=== PATIENT | male | born 1935 | race Caucasian/White ===

== ENCOUNTER → 2016-09-16 | Day surgery (SDC) | payer OTHER ==
[2016-09-16 09:30] LABS: HCT 46.8 % (42.0-52.0); HGB 14.9 g/dl (13.2-18.0); MCH 28.6 pg (25.0-31.0); MCHC 31.8 g/dL (32.0-36.0); MCV 89.8 fL (78.0-100.0); MPV 11.5 fL (6.0-9.5); RBC 5.21 M/uL (4.70-6.00); RDW 15.3 % (11.5-14.0); WBC 13.8 K/uL (4.0-10.5)
[2016-09-16 09:50] LABS: ALBUMIN 4.3 g/dL (3.4-4.8); BILIRUBIN - TOTAL 0.7 mg/dL (0.1-1.0); CREATININE 1.3 mg/dL (0.7-1.2); GLOBULIN (CALCULATION) 2.6 g/dL (2.2-4.2); POTASSIUM 3.8 mmol/L (3.5-5.1); TOTAL PROTEIN 6.9 g/dL (6.4-8.3)
== END | disposition home or self-care (01) ==
LOC: FAS 09:02
PROVIDERS: Surgery
DX: K64.1 Second degree hemorrhoids (principal); K57.30 Diverticulosis of large intestine without perforation or abscess without bleeding; D51.0 Vitamin B12 deficiency anemia due to intrinsic factor deficiency; M19.90 Unspecified osteoarthritis, unspecified site; Z79.899 Other long term (current) drug therapy; Z98.890 Other specified postprocedural states; Z87.891 Personal history of nicotine dependence
CPT/HCPCS: 36415; 80053; J2704

== ENCOUNTER 2020-08-07 14:14 | Inpatient (IN) | payer MEDICARE, OTHER ==
[~2020-08-07] VITALS: Ht 167.6 cm; Wt 87.6 kg
[~2020-08-07 14:14] MED LIST: CYANOCOBAL1000 MCG/1 SC; FOLIC ACID1 MG PO; HCTZ25 MG PO; LASIX40 MG PO; PREDNISONE5 MG PO
[2020-08-07 16:10] LABS: BASOPHIL 0.3 % (0-2); EOSINOPHIL 0 % (0-7); HCT 27.3 % (42.0-52.0); LYMPHOCYTE 16.8 % (15-48); MCHC 24.2 g/dL (32.0-36.0); MCV 74.6 fL (78.0-100.0); MONOCYTE 10.9 % (0-12); NEUTROPHIL 71.5 % (41-80); NRBC 0.4; PLT 216 K/uL (150-400); RBC 3.66 M/uL (4.70-6.00); RDW 19.6 % (11.5-14.0); WBC 7.9 K/uL (4.0-10.5)
[2020-08-07 16:16] LABS: HGB 6.6 g/dl (13.2-18.0)
[2020-08-07 16:18] LABS: INR 1.85 (0.9-1.2); PROTHROMBIN TIME 20.3 SECONDS (11.4-13.6)
[2020-08-07 16:19] LABS: PTT 34.8 SECONDS (22.2-34.7)
[2020-08-07 16:26] LABS: D-DIMER 0.65 ug/mLFEU (0.00-0.41)
[2020-08-07 16:33] LABS: ALBUMIN 3.3 g/dL (3.4-5.0); BILIRUBIN - TOTAL 0.6 mg/dL (0.2-1.0); BUN/CREAT RATIO (CALC) 23.3 RATIO; C-REACTIVE PROTEIN 0.9 mg/dL (<=0.90); CREATININE 1.72 mg/dL (0.67-1.17); GLOBULIN (CALCULATION) 2.8 g/dL; POTASSIUM 5.2 mmol/L (3.5-5.1); TOTAL PROTEIN 6.1 g/dL (6.4-8.2)
[2020-08-07] MEDS ORDERED: PLAVIX75 MG PO (22:21)
[2020-08-07] MEDS ORDERED: ELIQUIS5 MG PO (22:22)
[2020-08-07] MEDS ORDERED: LOPRESSOR25 MG PO (22:23)
[2020-08-08 05:14] LABS: BASOPHIL 0.4 % (0-2); EOSINOPHIL 0.9 % (0-7); LYMPHOCYTE 25.6 % (15-48); MCH 21.4 pg (25.0-31.0); MCHC 27.7 g/dL (32.0-36.0); MCV 77.1 fL (78.0-100.0); MONOCYTE 10.8 % (0-12); NEUTROPHIL 61.8 % (41-80); PLT 208 K/uL (150-400); RBC 4.54 M/uL (4.70-6.00); RDW 20.6 % (11.5-14.0); WBC 11.8 K/uL (4.0-10.5)
[2020-08-08 05:27] LABS: INR 1.47 (0.9-1.2); PROTHROMBIN TIME 16.9 SECONDS (11.4-13.6)
[2020-08-08 05:31] LABS: HGB 9.7 g/dl (13.2-18.0)
[2020-08-08 07:06] LABS: EOSINOPHIL(M) 2 % (0-7); LYMPHOCYTE(M) 28 % (15-48); MONOCYTE(M) 8 % (0-12); NEUTROPHILS(M) 62 % (41-80); PLATELET ESTIMATE NORMAL; PLATELET MORPHOLOGY NORMAL; TOTAL CELL COUNT 100
[2020-08-08 07:07] LABS: ANISOCYTOSIS SLIGHT; MICROCYTOSIS SLIGHT; POLYCHROMASIA SLIGHT
[2020-08-08 07:48] LABS: CREATININE 1.91 mg/dL (0.67-1.17); POTASSIUM 4.5 mmol/L (3.5-5.1)
[2020-08-08 16:06] LABS: BASOPHIL 0.3 % (0-2); EOSINOPHIL 1.1 % (0-7); HCT 35.9 % (42.0-52.0); HGB 9.9 g/dl (13.2-18.0); LYMPHOCYTE 12.3 % (15-48); MCH 21.2 pg (25.0-31.0); MCHC 27.6 g/dL (32.0-36.0); MCV 76.7 fL (78.0-100.0); MONOCYTE 10.7 % (0-12); NEUTROPHIL 75.2 % (41-80); NRBC 0.3; PLT 209 K/uL (150-400); RBC 4.68 M/uL (4.70-6.00); RDW 20.9 % (11.5-14.0); WBC 11.2 K/uL (4.0-10.5)
[2020-08-08 16:22] LABS: BUN/CREAT RATIO (CALC) 20.5 RATIO; CREATININE 1.95 mg/dL (0.67-1.17); POTASSIUM 4.2 mmol/L (3.5-5.1)
[2020-08-08] MEDS ORDERED: FEOSOL325 MG PO (18:19)
[2020-08-09 06:29] LABS: BASOPHIL 0.4 % (0-2); EOSINOPHIL 1.8 % (0-7); HCT 32.4 % (42.0-52.0); LYMPHOCYTE 15.6 % (15-48); MCH 21.2 pg (25.0-31.0); MCHC 27.8 g/dL (32.0-36.0); MCV 76.2 fL (78.0-100.0); MONOCYTE 11.8 % (0-12); PLT 190 K/uL (150-400); RBC 4.25 M/uL (4.70-6.00); RDW 21.4 % (11.5-14.0); WBC 8.5 K/uL (4.0-10.5)
[2020-08-09 06:33] LABS: NRBC 0
[2020-08-09 06:51] LABS: BUN/CREAT RATIO (CALC) 20.5 RATIO; CREATININE 1.9 mg/dL (0.67-1.17); POTASSIUM 3.7 mmol/L (3.5-5.1)
[2020-08-09] MEDS ORDERED: BUMETANIDE2 MG PO (08:31)
== END 2020-08-09 14:30 | disposition home or self-care (01) | DRG 280 ==
LOC: FER 14:14 → FTCU 18:38 → FMS 18:38 → FTCU 19:51
PROVIDERS: Allergy & Immunology; Emergency Medicine; Nurse Practitioner Family; ADMIT Allergy & Immunology Allergy
PROC: 30233N1 Transfusion of Nonautologous Red Blood Cells into Peripheral Vein, Percutaneous Approach (ICD-10-PCS; principal; 2020-08-07)
DX: I13.0 Hypertensive heart and chronic kidney disease with heart failure and stage 1 through stage 4 chronic kidney disease, or unspecified chronic kidney disease (principal); I50.23 Acute on chronic systolic (congestive) heart failure; I21.A1 Myocardial infarction type 2; K90.9 Intestinal malabsorption, unspecified; D50.9 Iron deficiency anemia, unspecified; N18.9 Chronic kidney disease, unspecified; Z20.822 Contact with and (suspected) exposure to COVID-19; I25.10 Atherosclerotic heart disease of native coronary artery without angina pectoris; I25.5 Ischemic cardiomyopathy; Z79.01 Long term (current) use of anticoagulants; I48.0 Paroxysmal atrial fibrillation
CPT/HCPCS: 36415; 36430; 71045; 80048; 80053; 82607; 82728; 83615; 83735; 83880; 84145; 84484; 85025; 85379; 85610; 85730; 86140; 86850; 86900; 86901; 86922; 93005; 97116; 97162; 97530-GP; C9113; J1940; J7040; J7050; P9016; U0002